=== PATIENT | female | born 1975 | race Caucasian/White ===

== ENCOUNTER 2020-01-21 00:59 | Emergency (ER) | payer BC ==
[~2020-01-21] VITALS: Ht 154.9 cm; Wt 102.1 kg
[2020-01-21] MEDS ORDERED: FAMOTIDINE 20 MG/2 ML VIAL IV ONE (01:15)
[2020-01-21] MEDS ORDERED: METHYLPREDNISOLONE SOD SUCC 125 MG/2ML VIAL IV ONE (01:15)
[2020-01-21] MEDS ORDERED: DIPHENHYDRAMINE HCL INJ 50 MG/ML VIAL IV ONE ×2 (01:15→01:30)
[2020-01-21] MEDS ORDERED: ALBUTEROL/IPRATROPIUM 3 ML NEB NEB ONE (01:15)
[2020-01-21] MEDS ORDERED: CLONIDINE HCL 0.2 MG TAB PO ONE (01:30)
[2020-01-21] MEDS ORDERED: METHYLPREDNISOLONE SOD SUCC 125 MG/2ML VIAL ONE (01:31)
[2020-01-21] MEDS ORDERED: SODIUM CHLORIDE 0.9% 1000ML 1,000 ML ONE (01:31)
[2020-01-21] MEDS ORDERED: CLONIDINE HCL 0.1 MG TAB ONE (02:27)
[2020-01-21 05:02] VITALS: BP 174/81
[2020-01-21] MEDS ORDERED: SODIUM CHLORIDE 0.9% 1000ML 1,000 ML IV STA (19:29)
== END 2020-01-21 03:03 | disposition home or self-care (01) ==
LOC: FSED 00:59
DX: L50.9 Urticaria, unspecified (principal)
CPT/HCPCS: 96374; 96375; 99283; J1200; J2930; J7030